=== PATIENT | male | born 1975 | race Caucasian/White ===

== ENCOUNTER 2020-03-24 12:33 | Emergency (ER) | payer BC ==
[2020-03-24] MEDS ORDERED: Bupivacaine 0.5% 10 ML SDV INJECT ONE (13:50)
--- NOTE | 2020-03-24 14:01 | EDM.PDOC ---
ED HPI GENERAL MEDICAL PROBLEM - General Chief Complaint: Laceration Stated Complaint: INJURED LEFT THUMB Time Seen by Provider: 03/24/20 13:45 Source of Information: Reports: Patient, Family History Limitations: Reports: No Limitations - History of Present Illness INITIAL COMMENTS - FREE TEXT/NARRATIVE: 45-year-old male arrives with a fairly complex left thumb injury. It became pinched in a harsha, and avulsed the base of the fingernail out at the nail matrix. Onset: Sudden Duration: Hour(s): (Within the last hour) Location: Reports: Upper Extremity, Left Associated Symptoms: Reports: No Other Symptoms Left Finger-Thumb Pain Score (Numeric/FACES): 9 - Related Data Allergies Allergy/AdvReac Type Severity Reaction Status Date / Time No Known Allergies Allergy Verified 03/24/20 13:37 Home Meds: Home Meds Fish Oil/[place]-3 Fatty Acids [Fish Oil 1,000 MG] 1 each PO DAILY 03/24/20 [History] Omeprazole 40 mg PO BIDAC 03/24/20 [History] Past Medical History HEENT History: Reports: Impaired Vision Gastrointestinal History: Reports: Diverticulosis, GERD Endocrine/Metabolic History: Reports: Obesity/BMI 30+ Dermatologic History: Reports: Psoriasis - Past Surgical History Musculoskeletal Surgical History: Reports: Arthroscopic Knee, Other (See Below) Other Musculoskeletal Surgeries/Procedures:: acl, pcl right knee. left bicept tendon reconstruction Social & Family History - Tobacco Use Smoking Status *Q: Never Smoker - Caffeine Use Caffeine Use: Reports: Coffee - Recreational Drug Use Recreational Drug Use: No ED ROS GENERAL - Review of Systems Review Of Systems: See Below Constitutional: Denies: Fever, Chills Respiratory: Denies: Shortness of Breath Cardiovascular: Denies: Chest Pain GI/Abdominal: Denies: Nausea, Vomiting Neurological: Denies: Headache Psychiatric: Reports: No Symptoms ED EXAM, SKIN/RASH Exam: See Below Exam Limited By: No Limitations General Appearance: Alert, Mild Distress (Fairly uncomfortable due to thumb pain) Head: Atraumatic Respiratory/Chest: No Respiratory Distress Extremities: Other (Exam is otherwise limited to the left hand. Patient has a traumatic injury to the left thumbnail, it is avulsed at the base and there is a crush injury to the distal thumb) Neurological: Alert, Oriented Psychiatric: Anxious Course - Vital Signs Last Recorded V/S: Last Vital Signs Temp 98.7 F 03/24/20 13:43 Pulse 113 H 03/24/20 13:43 Resp 15 03/24/20 13:43 BP 155/108 H 03/24/20 13:43 Pulse Ox 96 03/24/20 13:43 - Orders/Labs/Meds Orders: Active Orders 24 hr Category Date Time Status Fingers Thumb Lt FA [CR] Stat Exams 03/24/20 14:01 Taken Meds: Medications Discontinued Medications Generic Name Dose Route Start Last Admin Trade Name Rebeca PRN Reason Stop Dose Admin Bacitracin 1 dose 03/24/20 14:50 03/24/20 15:05 Bacitracin Oint 1 Gm TOP 03/24/20 14:51 1 dose ONETIME ONE Administration Bupivacaine HCl 10 ml 03/24/20 13:50 03/24/20 14:01 Sensorcaine-Mpf 0.5% INJECT 03/24/20 13:51 10 ml ONETIME ONE Administration - Re-Assessments/Exams Free Text/Narrative Re-Assessment/Exam: 03/24/20 16:17 An x-ray was done which showed a avulsion of the very tip of the tuft with slight displacement. After the x-ray, a digital block with Marcaine was done to the thumb, and the thumbnail removed. There was a transverse laceration of the nailbed, this was repaired with three 6-0 Vicryl sutures. The nail was then reapplied and sewn on with a 4-0 Ethilon suture. He was placed on cephalexin 500 mg 3 times a day, a tube gauze was applied to the thumb and he was given a thumb splint to wear after the next day or 2 when the tube gauze is removed. He is to recheck next week for suture removal, and can recheck sooner if concerns of infection or not healing satisfactorily. He was also given 10 hydrocodone for extra pain control. Departure - Departure Time of Disposition: 15:07 Disposition: Home, Self-Care 01 Clinical Impression: Laceration of thumb with damage to nail Qualifiers: Encounter type: initial encounter Foreign body presence: without foreign body Laterality: left Qualified Code(s): S61.112A - Laceration without foreign body of left thumb with damage to nail, initial encounter Fracture of thumb, left, open Qualifiers: Encounter type: initial encounter Phalanx: distal Fracture alignment: displaced Qualified Code(s): S62.522B - Displaced fracture of distal phalanx of left thumb, initial encounter for open fracture - Discharge Information Instructions: Laceration Care, Adult, [id number] Referrals: PCP,None [Primary Care Provider] - Forms: ED Department Discharge Care Plan Goals: Keep wound covered and clean while healing, and recheck in 1 week. Take antibiotic as prescribed and a regular dose of anti-inflammatory will be help ful. Add stronger pain medications if needed. Okay to gently wash the thumb in warm soapy water at least once daily. Recheck sooner if concerns of infection or not healing satisfactorily. Sepsis Event Note (ED) - Evaluation Sepsis Screening Result: No Definite Risk - Focused Exam Vital Signs: Vital Signs Temp Pulse Resp BP Pulse Ox 03/24/20 13:43 98.7 F 113 H 15 155/108 H 96 03/24/20 13:16 98.7 F 113 H 15 155/108 H 96 - My Orders Last 24 Hours: My Active Orders 03/24/20 14:01 Fingers Thumb Lt FA [CR] Stat - Assessment/Plan Last 24 Hours: My Active Orders 03/24/20 14:01 Fingers Thumb Lt FA [CR] Stat
[2020-03-24] MEDS ORDERED: Bacitracin Oint 1 GM U/D Packet TOP ONE (14:50)
--- NOTE | 2020-03-25 11:00 | CR ---
Fingers Thumb Lt FA CLINICAL HISTORY: Trauma FINDINGS: There is a tuft fracture of the first distal phalanx. It is minimally displaced. IMPRESSION: Tuft fracture
== END 2020-03-24 15:07 | disposition home or self-care (01) ==
LOC: JP.ED 12:33
DX: S62.522B Displaced fracture of distal phalanx of left thumb, initial encounter for open fracture (principal); K21.9 Gastro-esophageal reflux disease without esophagitis; E66.9 Obesity, unspecified; Z68.41 Body mass index [BMI] 40.0-44.9, adult; Z79.899 Other long term (current) drug therapy; W23.0XXA Caught, crushed, jammed, or pinched between moving objects, initial encounter
CPT/HCPCS: 11760; 73140; 99283; J3490